=== PATIENT | female | born 2000 | race Hispanic/Latino ===

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

== ENCOUNTER 2021-08-17 15:00 | Emergency (ER) | payer OTHER ==
[~2021-08-17] VITALS: Ht 167.6 cm; Wt 85.3 kg
--- OUTSIDE RECORDS SUMMARY | 2021-08-17 15:08 | XMS ---
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 Yenni has no Care Guidelines for this patient. Lina VISIT COUNT (12 MO.) 1 [facility] Fleming TOTAL 1 NOTE: Visits indicate total known visits. ED/C VISIT TRACKING (12 MO.) 08/17/2021 15:01 [facility] [place] TYPE: Emergency COMPLAINT: - RT ANKLE INJURY INPATIENT VISIT TRACKING (12 MO.) No inpatient visits to display in this time frame [email or web address]
== END 2021-08-17 16:27 | disposition home or self-care (01) ==
LOC: ED 15:00
DX: S93.401A Sprain of unspecified ligament of right ankle, initial encounter (principal); X50.1XXA Overexertion from prolonged static or awkward postures, initial encounter; Y93.01 Activity, walking, marching and hiking
CPT/HCPCS: 73610; 99283-25; A9270

== ENCOUNTER 2024-04-22 12:05 | Emergency (ER) | payer OTHER ==
[~2024-04-22] VITALS: Ht 172.7 cm; Wt 75.5 kg
[2024-04-22] MEDS ORDERED: HALOPERIDOL LACTATE 5 MG/ML VIAL IM ONE (12:15)
[2024-04-22] MEDS ORDERED: diphenhydrAMINE HCL 50 MG/ML VIAL IM ONE (12:15)
[2024-04-22 13:22] LABS: BASOPHILS 0.3 % (0-2); EOSINOPHILS 0.6 % (0-6); HEMATOCRIT 37.9 % (35.0-50.0); LYMPHOCYTES 23.7 % (24-44); MCH 29.2 (27-36); MCHC 34.3 g/dl (30-36); MCV 85.1 fl (81-99); MONOCYTES 4.5 % (0-12); NEUTROPHILS 70.9 % (39-80); PLATELET COUNT 247 K/uL (140-440); RBC 4.46 M/ul (4.3-5.7); RDW 14.3 (10.5-15.0)
[2024-04-22] MEDS ORDERED: ONDANSETRON 4 MG TAB ODT SL ONE (13:30)
[2024-04-22 13:37] LABS: ALBUMIN 3.9 g/dL (3.4-5.0); ANION GAP 8.3 (7-21); BILIRUBIN, TOTAL 0.3 ng/dL (0.2-1.0); BUN/CREATININE RATIO 5.33 (6.0-28.6); CALCIUM 8.4 mg/dL (8.5-10.1); CREATININE, SERUM 0.75 mg/dL (0.55-1.02); POTASSIUM 3.3 mmol/L (3.5-5.1); PROTEIN, TOTAL 7.8 g/dL (6.4-8.2)
[2024-04-22 19:05] VITALS: BP 103/52
== END 2024-04-22 19:03 | disposition home or self-care (01) ==
LOC: ED 12:05 → EDBD 12:06 → ED 12:06
PROVIDERS: Emergency Medicine
DX: F10.129 Alcohol abuse with intoxication, unspecified (principal)
CPT/HCPCS: 36415; 80053; 84703; 85025; 96372; 99284; A9270; G0480; J1200; J1630

== ENCOUNTER 2024-09-03 19:03 | Emergency (ER) | payer OTHER ==
[~2024-09-03] VITALS: Ht 172.7 cm; Wt 79.2 kg
--- OUTSIDE RECORDS SUMMARY | 2024-09-03 19:10 | XMS ---
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 Lina VISIT COUNT (12 MO.) 4 [facility] TOTAL 4 NOTE: Visits indicate total known visits. ED/UCC VISIT TRACKING (12 MO.) 09/03/2024 19:04 [facility] [place] TYPE: Emergency COMPLAINT: - VAGINAL BLEEDING/6 WEEKS 09/03/2024 14:58 [facility] [place] TYPE: Emergency COMPLAINT: - VAGINAL BLEEDING/6 WEEKS 04/22/2024 12:06 [facility] [place] TYPE: Emergency COMPLAINT: - INTOIXCATED DIAGNOSES: - Alcohol abuse with intoxication, unspecified - Altered mental status, unspecified 10/22/2023 08:52 [facility] [place] TYPE: Emergency COMPLAINT: - COLD/FLU SYMPTOMS DIAGNOSES: - Cough, unspecified - Viral infection, unspecified INPATIENT VISIT TRACKING (12 MO.) No inpatient visits to display in this time frame [email or web address]
[2024-09-03 21:25] LABS: BASOPHILS 0.3 % (0-2); EOSINOPHILS 1.6 % (0-6); HEMATOCRIT 33.1 % (35.0-50.0); HEMOGLOBIN 11.5 g/dL (12.0-18.0); LYMPHOCYTES 18.3 % (24-44); MCHC 34.8 g/dl (30-36); MCV 83.2 fl (81-99); MONOCYTES 14.5 % (0-12); NEUTROPHILS 65.3 % (39-80); PLATELET COUNT 141 K/uL (140-440); RBC 3.98 M/ul (4.3-5.7); RDW 14.3 (10.5-15.0)
[2024-09-03 21:34] LABS: ALBUMIN 3.5 g/dL (3.4-5.0); ANION GAP 12.3 (7-21); BILIRUBIN, TOTAL 0.3 mg/dL (0.2-1.0); BUN/CREATININE RATIO 6.15 (6.0-28.6); CALCIUM 8.4 mg/dL (8.5-10.1); CREATININE, SERUM 0.65 mg/dL (0.55-1.02); POTASSIUM 3.3 mmol/L (3.5-5.1)
[2024-09-03 22:30] LABS: BILIRUBIN, URINE NEGATIVE (negative); BLOOD/HGB, URINE MODERATE (Negative); KETONE, URINE NEGATIVE (Negative); LEUK ESTERASE, URINE NEGATIVE (negative); NITRITE, URINE NEGATIVE (negative); PH, URINE 6.5 (5-7)
[2024-09-03 22:36] LABS: BACTERIA, URINE 1+ /hpf (negative); CASTS, URINE NONE SEEN \\lpf; COLLECTION TYPE, URINE CLEAN CATCH; CRYSTALS, URINE NONE SEEN (0-1+); EPITHELIAL CELLS, URINE SQUAMOUS 4+ /lpf (0-1+); REFLEX CULTURE, URINE No (No)
[2024-09-03] MEDS ORDERED: LACTATED RINGER'S 1,000 ML IV ONE (23:00)
[2024-09-03 23:05] LABS: AMPHETAMINES, URINE NEGATIVE (NEGATIVE); BARBITURATES, URINE NEGATIVE (NEGATIVE); BENZODIAZEPINE, URINE NEGATIVE (NEGATIVE); BUPRENORPHINE, URINE NEGATIVE (NEGATIVE); CANNABINOID, URINE NEGATIVE (NEGATIVE); COCAINE, URINE NEGATIVE (NEGATIVE); ECSTASY, URINE NEGATIVE (NEGATIVE); FENTANYL, URINE NEGATIVE (NEGATIVE); METHADONE, URINE NEGATIVE (NEGATIVE); OPIATES, URINE NEGATIVE (NEGATIVE); OXYCODONE, URINE NEGATIVE (NEGATIVE); PHENCYCLIDINE, URINE NEGATIVE (NEGATIVE)
[2024-09-03 23:08] LABS: ABO B; RH POSITIVE
[2024-09-03 23:15] LABS: CORONAVIRUS COVID-19 AG NEGATIVE (NEGATIVE); INFLUENZA A AG NEGATIVE (NEGATIVE); INFLUENZA B AG NEGATIVE (NEGATIVE)
[2024-09-04 02:16] VITALS: BP 111/65
== END 2024-09-04 02:16 | disposition home or self-care (01) ==
LOC: ED 19:03
PROVIDERS: Internal Medicine
DX: O98.511 Other viral diseases complicating pregnancy, first trimester (principal); B34.9 Viral infection, unspecified; O46.91 Antepartum hemorrhage, unspecified, first trimester; Z3A.01 Less than 8 weeks gestation of pregnancy
CPT/HCPCS: 36415; 76770; 76801; 76817; 80053; 80307; 81001; 83690; 84702; 84703; 85025; 86900; 86901; 99284-25; J7121

== ENCOUNTER 2024-12-30 08:30 | Emergency (ER) | payer OTHER ==
[~2024-12-30] VITALS: Ht 172.7 cm; Wt 87.0 kg
--- OUTSIDE RECORDS SUMMARY | 2024-12-30 08:36 | XMS ---
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 [facility] NOTE: Visits indicate total known visits. ED/UCC VISIT TRACKING (12 MO.) 12/30/2024 08:30 [facility] TYPE: Emergency COMPLAINT: - DENTAL PAIN 09/03/2024 19:04 [facility] TYPE: Emergency COMPLAINT: - VAGINAL BLEEDING/6 WEEKS DIAGNOSES: - Antepartum hemorrhage, unspecified, first trimester - Less than 8 weeks gestation of - Other specified diseases and conditions complicating - Other viral diseases complicating , first trimester - Viral infection, unspecified 09/03/2024 14:58 [facility] [place] TYPE: Emergency COMPLAINT: - VAGINAL BLEEDING/6 WEEKS 04/22/2024 12:[address] [facility] [place] TYPE: Emergency COMPLAINT: - INTOIXCATED DIAGNOSES: - Alcohol abuse with intoxication, unspecified - Altered mental status, unspecified INPATIENT VISIT TRACKING (12 MO.) No inpatient visits to display in this time frame [email or web address]
[2024-12-30] MEDS ORDERED: PENICILLIN V P500 MG PO (08:58)
[2024-12-30] MEDS ORDERED: PENICILLIN V POTASSIUM 500 MG TAB PO ONE (09:00)
[2024-12-30 09:15] VITALS: BP 129/73
== END 2024-12-30 09:15 | disposition home or self-care (01) ==
LOC: ED 08:30
DX: K08.89 Other specified disorders of teeth and supporting structures (principal)
CPT/HCPCS: 99282

== ENCOUNTER 2025-04-29 05:00 | Inpatient (IN) | payer OTHER ==
[~2025-04-29] VITALS: Ht 171.5 cm; Wt 94.8 kg
[~2025-04-29 05:00] MED LIST: PENICILLIN V P500 MG PO
[2025-04-29] MEDS ORDERED: MAGNESIUM HYDROXIDE/AL HYDROX 30 ML CUP PO PRN ×2 (05:45→10:15)
[2025-04-29] MEDS ORDERED: LIDOCAINE HCL 1% 30 ML SDV INJ PRN (05:45)
[2025-04-29] MEDS ORDERED: OXYTOCIN/0.9 % SODIUM CHLORIDE 30 UNITS/500 ML BAG IV SCH (05:45)
[2025-04-29] MEDS ORDERED: CALCIUM CARBONATE 500 MG CHEW PO PRN ×2 (05:45→10:15)
[2025-04-29] MEDS ORDERED: LACTATED RINGER'S 1,000 ML IV SCH (05:45)
[2025-04-29] MEDS ORDERED: TERBUTALINE SULFATE 1 MG/ML AMP SUB-Q PRN (05:45)
[2025-04-29] MEDS ORDERED: LACTATED RINGER'S 1,000 ML IV PRN (05:45)
[2025-04-29 05:53] LABS: MCH 24.5 PG (25.6-32.2); MCHC 31.8 g/dL (32.2-35.5); MCV 77.0 fL (79.4-94.8); RBC 4.57 M/uL (3.93-5.22)
[2025-04-29] MEDS ORDERED: ROPIVACAINE 0.2% 200 ML BAG ONE (06:08)
[2025-04-29 06:29] LABS: ABO B
[2025-04-29 06:30] LABS: RH POSITIVE
[2025-04-29 06:43] LABS: ANTIBODY SCREEN NEGATIVE; IS CROSSMATCH COMPATIBLE
[2025-04-29 06:44] LABS: INR 1.09 (0.80-1.30); PROTIME 13.4 Sec (11.2-14.2)
[2025-04-29 07:27] VITALS: BP 119/66
[2025-04-29 08:34] LABS: AMPHETAMINES, URINE NEGATIVE (NEGATIVE); BARBITURATES, URINE NEGATIVE (NEGATIVE); BENZODIAZEPINE, URINE NEGATIVE (NEGATIVE); CANNABINOID, URINE NEGATIVE (NEGATIVE); COCAINE, URINE NEGATIVE (NEGATIVE); ECSTASY, URINE NEGATIVE (NEGATIVE); FENTANYL, URINE NEGATIVE (NEGATIVE); METHADONE, URINE NEGATIVE (NEGATIVE); OPIATES, URINE NEGATIVE (NEGATIVE); OXYCODONE, URINE NEGATIVE (NEGATIVE); PHENCYCLIDINE, URINE NEGATIVE (NEGATIVE)
[2025-04-29] MEDS ORDERED: SENNOSIDES/DOCUSATE 1 EA TAB PO SCH (10:13)
[2025-04-29] MEDS ORDERED: HYDROCORTISONE ACETATE 25 MG SUPP PR PRN (10:15)
[2025-04-29] MEDS ORDERED: BENZOCAINE 60 ML AEROSOL TOP PRN (10:15)
[2025-04-29] MEDS ORDERED: IBUPROFEN 600 MG TAB PO PRN (10:15)
[2025-04-29] MEDS ORDERED: OXYTOCIN/0.9 % SODIUM CHLORIDE 500 ML IV SCH (10:15)
[2025-04-29] MEDS ORDERED: LIDOCAINE 2% VISCOUS 6 ML SYR TOP ONE ×2 (10:15)
[2025-04-29] MEDS ORDERED: WITCH HAZEL/GLYCERIN 1 EA PAD TOP PRN (10:15)
[2025-04-29] MEDS ORDERED: OXYCODONE HCL 5 MG TAB PO PRN (10:15)
[2025-04-29] MEDS ORDERED: OXYCODONE/APAP 5/325 TAB PO PRN (10:15)
[2025-04-29] MEDS ORDERED: MAGNESIUM HYDROXIDE 30 ML UDC PO PRN (10:15)
[2025-04-29] MEDS ORDERED: HYDROCODONE/ACETA 5/325 TAB PO PRN (10:15)
[2025-04-29] MEDS ORDERED: ACETAMINOPHEN 325 MG TAB PO PRN (10:15)
[2025-04-30 05:23] LABS: MCH 24.7 PG (25.6-32.2); MCHC 32.0 g/dL (32.2-35.5); MCV 77.3 fL (79.4-94.8); RBC 4.09 M/uL (3.93-5.22)
== END 2025-04-30 14:00 | disposition home or self-care (01) | DRG 807 ==
LOC: FBCO 05:00 → FBC 05:30
PROVIDERS: ADMIT Obstetrics & Gynecology; ATTEND Obstetrics & Gynecology
PROC: 10E0XZZ Delivery of Products of Conception, External Approach (ICD-10-PCS; principal; 2025-04-29)
PROC: 10907ZC Drainage of Amniotic Fluid, Therapeutic from Products of Conception, Via Natural or Artificial Opening (ICD-10-PCS; 2025-04-29)
PROC: 0HQ9XZZ Repair Perineum Skin, External Approach (ICD-10-PCS; 2025-04-29)
PROC: 3E0R3BZ Introduction of Anesthetic Agent into Spinal Canal, Percutaneous Approach (ICD-10-PCS; 2025-04-29)
PROC: 00HU33Z Insertion of Infusion Device into Spinal Canal, Percutaneous Approach (ICD-10-PCS; 2025-04-29)
DX: O99.02 Anemia complicating childbirth (principal); Z37.0 Single live birth; D50.9 Iron deficiency anemia, unspecified; Z3A.40 40 weeks gestation of pregnancy; O70.0 First degree perineal laceration during delivery; Z91.040 Latex allergy status; Z87.891 Personal history of nicotine dependence
CPT/HCPCS: 01960; 36415; 80307; 85027; 85384; 85610; 85730; 86850; 86900; 86901; 86922; A9270; J2795; J7121